=== PATIENT | male | born 1990 | race Caucasian/White ===

== ENCOUNTER 2018-06-22 01:05 | Emergency (ER) | payer SELFPAY ==
[~2018-06-22] VITALS: Ht 170.2 cm; Wt 77.1 kg
[2018-06-22 01:10] VITALS: BP 116/81
--- NOTE | 2018-06-22 01:10 | NUR ---
PT PRESENTS TO ED WITH N/V AND COFFEE GROUND EMESIS X3 HRS. PT STATES DRINKING BEER SOCIALY AT 2100 AND STATES HAVING 1-2 BEERS DAILY LIFESTYLE. PT DENIES PAST MEDICAL HX. PT SKIN DIAPHRETIC AND ASHEN UPON ED ARRIVAL. VSS. POSITIONED IN BED FOR COMFORT. ER MD AWARE. CONTINUE TO MONITOR.
--- NOTE | 2018-06-22 01:10 | NUR ---
TO BED # 5 AMBULATORY , REPORT GIVEN TO AMY ARITA
[2018-06-22] MEDS ORDERED: NACL 0.9% 1,000 ML IV ONE (01:27)
[2018-06-22] MEDS ORDERED: PANTOPRAZOLE 40 MG INJ VIAL IVP ONE (01:30)
[2018-06-22] MEDS ORDERED: DICYCLOMINE HCL LIQUID 20 MG, ALUMINUM HYD/MAG/SIMETHICONE 30 ML, LIDOCAINE VISCOUS 2% ... PO ONE ×3 (01:30)
[2018-06-22] MEDS ORDERED: ONDANSETRON 4 MG/2 ML VIAL IVP ONE (01:30)
[2018-06-22 01:44] LABS: BASOPHILS # (AUTO) 0.1 K/uL (0.00-0.22); BASOPHILS % (AUTO) 0.4 % (0.0-2.0); EOSINOPHILS # (AUTO) 0.1 K/uL (0-0.4); EOSINOPHILS % (AUTO) 0.6 % (0.0-4.0); HEMATOCRIT 43.7 % (36-52); HEMOGLOBIN 14.1 g/dL (12.0-18.0); LYMPHOCYTES # (AUTO) 3.1 K/uL (2.0-11.5); LYMPHOCYTES % (AUTO) 23.1 % (20.5-51.1); MEAN CORPUSCULAR HEMOGLOBIN 26 pg (27-31); MEAN CORPUSCULAR HGB CONC 32 g/dL (33-37); MEAN CORPUSCULAR VOLUME 80.1 fL (80-94); MONOCYTES # (AUTO) 0.9 K/uL (0.8-1.0); MONOCYTES % (AUTO) 6.8 % (1.7-9.3); NEUTROPHILS # (AUTO) 9.1 K/uL (1.8-7.7); NEUTROPHILS % (AUTO) 69.1 % (42.2-75.2); PLATELET COUNT (AUTO) 292 K/uL (140-450); RED BLOOD CELL COUNT(AUTO) 5.46 MIL/uL (4.20-6.10); RED CELL DISTRIBUTION WIDTH 13.7 % (11.6-13.7); WHITE BLOOD COUNT (AUTO) 13.2 K/uL (4.8-10.8)
[2018-06-22 01:58] LABS: ALBUMIN 4.5 g/dL (3.4-5.0); ANION GAP 20.4 (8-16); CARBON DIOXIDE 22.5 mmol/L (21-32); CREATININE 0.9 mg/dL (0.7-1.3); POTASSIUM 3.9 mmol/L (3.5-5.1); TOTAL BILIRUBIN 0.4 mg/dL (0.0-1.0)
[2018-06-22 02:02] LABS: PROTHROMBIN TIME 10.2 secs (10.8-13.4)
[2018-06-22 02:55] VITALS: BP 123/77
--- NOTE | 2018-06-22 02:55 | NUR ---
Patient discharged with v/s stable. Written and verbal after care instructions given and explained. Patient alert, oriented and verbalized understanding of instructions. Ambulatory with steady gait. All questions addressed prior to discharge. ID band removed. Patient advised to follow up with PMD. Rx of Mylanta given. Patient educated on indication of medication including possible reaction and side effects. Opportunity to ask questions provided and answered.
== END 2018-06-22 02:55 | disposition home or self-care (01) ==
LOC: MED 01:05
DX: R10.10 Upper abdominal pain, unspecified (principal); R11.10 Vomiting, unspecified; Z90.49 Acquired absence of other specified parts of digestive tract
CPT/HCPCS: 36415; 80053; 81002; 83690; 85025; 85610; 85730; 86886; 86900; 86901; 96361; 96374; 96375; 99283; C9113; J2405; J7030

== ENCOUNTER 2022-10-27 10:42 | Emergency (ER) | payer MEDICAID ==
[~2022-10-27] VITALS: Ht 170.2 cm; Wt 99.8 kg
[2022-10-27 10:45] VITALS: BP 132/87
--- NOTE | 2022-10-27 10:54 | NUR ---
pt to bed 7, ambulatory and steady gait
--- NOTE | 2022-10-27 10:58 | NUR ---
Dr. Urena evaluating patient at bedside.
--- NOTE | 2022-10-27 11:03 | NUR ---
RM FARRAR CONTACTED AND NOTED IN CALL LIST.
[2022-10-27] MEDS ORDERED: HYDROcodone/APAP 10/325 MG 1 TAB TAB PO ONE (11:05)
--- NOTE | 2022-10-27 11:39 | NUR ---
Patient returned from CT.
[2022-10-27] MEDS ORDERED: AMOXIL/CLAVULANATE 875/125 MG 1 TAB PO ONE (12:50)
[2022-10-27] MEDS ORDERED: HYDR-5080 PO (13:22)
[2022-10-27] MEDS ORDERED: AMOX-999 PO (13:22)
[2022-10-27 13:25] VITALS: BP 126/67
--- NOTE | 2022-10-27 13:28 | NUR ---
Dr. Urena re-evaluating patient at bedside.
--- NOTE | 2022-10-27 13:34 | NUR ---
RM PD AT BEDSIDE
--- NOTE | 2022-10-27 14:02 | NUR ---
Patient discharged with v/s stable. Written and verbal after care instructions given. Patient alert, oriented and verbalized understanding of instructions. Ambulatory with steady gait. All questions addressed prior to discharge. ID band removed. Patient advised to follow up with PMD. Rx of Augmentin and Hall given. Opportunity to ask questions provided and answered. COPY OF CT AND XRAYS GIVEN TO PATIENT.
--- NOTE | 2022-10-27 14:03 | NUR ---
The patient's care was reviewed and supervised by Radha Gayle, RN, RN.
== END 2022-10-27 14:02 | disposition home or self-care (01) ==
LOC: MED 10:42
DX: S01.21XA Laceration without foreign body of nose, initial encounter (principal); Z79.2 Long term (current) use of antibiotics; Z79.891 Long term (current) use of opiate analgesic; Y08.89XA Assault by other specified means, initial encounter; Y93.89 Activity, other specified; Y92.89 Other specified places as the place of occurrence of the external cause; Y99.8 Other external cause status
CPT/HCPCS: 70450; 70486; 72125; 90471; 90715; 99285